=== PATIENT | male | born 1955 | race Caucasian/White ===

== ENCOUNTER → 2023-10-05 13:58 | Outpatient (REF) | payer MEDICARE, OTHER, SELFPAY | LOC: RAD 13:58 | PROVIDERS: ATTENDING PHYSICIAN Physician Assistant Medical | DX: M25.511 Pain in right shoulder (principal) | CPT/HCPCS: 73030 ==

== ENCOUNTER 2024-02-19 02:32 | Emergency (ER) | payer MEDICARE, OTHER, SELFPAY ==
[2024-02-19 02:33] VITALS: BMI 30.4
[2024-02-19 02:47] VITALS: BP 139/97
[2024-02-19 03:00] VITALS: BP 147/97
--- NOTE | 2024-02-19 03:12 | EDRN ---
Original EKG was done in triage; however, unable to print first EKG as machine was not working. 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 Repeat EKG completed upon pt.'s arrival to [facility] by ECT.
--- NOTE | 2024-02-19 03:23 | EDRN ---
Pt. refused chest x-ray, states, 'I don't want that, I was really mostly concerned about getting an EKG, but I don't want the chest x-ray'.
[2024-02-19 03:30] LABS: % Basophils 0.8 % (0-2); % Eosinophils 2.7 % (0-6); % Immature Granulocytes 0.6 % (0-0.5); % Lymphocytes 21.5 % (20.5-51.1); % Neutrophils 66.4 % (42.2-75.2); Absolute Basophils 0.1 10^3/uL (0-0.2); Absolute Eosinophils 0.3 10^3/uL (0-0.7); Absolute Immature Granulocytes 0.1 10^3/uL (0-0.05); Absolute Lymphocytes 2.2 10^3/uL (1.2-3.4); Absolute Monocytes 0.8 10^3/uL (0.1-0.6); Absolute Neutrophils 6.9 10^3/uL (1.4-6.5); Hematocrit 44.7 % (39.0-52.0); Hemoglobin 15.3 g/dL (13.0-18.0); Mean Corp Hgb Conc. 34.2 g/dL (33.0-37.0); Mean Corpuscular Hgb 29.3 pg (27.0-31.0); Mean Corpuscular Volume 85.6 fL (80.0-94.0); Mean Platelet Volume 10.5 fL (7.4-10.4); Nucleated Red Blood Cells % 0 % (-); Platelet Count 221 10^3/uL (130-400); Red Blood Cell Count 5.22 10^6/uL (4.70-6.10); Red Cell Dist. Width 12.8 % (11.5-14.5); White Blood Cell Count 10.3 10^3/uL (4.8-10.8)
--- NOTE | 2024-02-19 03:31 | ED.GENMED ---
History of Present Illness
<Yonas Lamb, DO - Last Filed: 02/19/24 03:44>
General
Chief Complaint: Heart Rate Problem
Time Seen by Provider: 02/19/24 03:13
<Melina Gonzales MD, Resident - Last Filed: 02/19/24 03:46>
General
Source: patient
Exam Limitations: none
Nursing documentation reviewed up to this point in time: agreed with
Travel History
Have you traveled to any high risk areas for coronavirus over the past 14 days?: No
Have you had any contact with someone who has COVID-19?: No
Do you have any symptoms of coronavirus? Fever > 100 degrees, chills, cough, shortness of breath, sore throat, loss of taste or smell, muscle aches, or headache?: No
History of Present Illness
History of Present Illness:
68-year-old male with past medical history significant for ventricular arrhythmia, hypertension, hyperlipidemia presents to the hospital for evaluation of heart rate greater than 160 for 3 consecutive hours. Patient had similar issue many years
ago, saw gum puller at [facility], was started on diltiazem after being on loop recorder for 14 days and was diagnosed with ventricular arrhythmia. Recently an year and half ago his diltiazem dose was bumped to 180 mg, he was started on
irbesartan for high blood pressure, and Repatha for hyperlipidemia. Today afternoon he started feeling lightheaded and dizzy, towards the night his lightheadedness became much worse with associated sensation of heart racing. Then he used [employer] and [employer] device to generate an EKG which showed a heart rate of 160 with a comment of possible A-fib. Hence he presented to ER for evaluation. Patient denies having any associated chest pain, pressure-like sensation, syncope or near
syncopal episode, orthopnea, PND, swelling of his feet, nausea, vomiting, chills, diarrhea, change in bowel and bladder habit.
He denies being on blood thinners, his gum puller gave him as needed warfarin dosing for prolonged flight travels which she never took.
If applicable-neuro sx onset
Onset of symptoms known: No
Time pt last seen normal is known: No
Past History
<Melina Gonzales MD, Resident - Last Filed: 02/19/24 03:46>
Past History
ED Past Medical History: Other (Hypertension, hyperlipidemia, ventricular arrhythmia, inguinal herni.)
ED Past Surgical History: Other (Hernia, finger, testicle.)
Patient has exhibited threatening behavior?: No
PSI?: No
Social History
Tobacco: Non-smoker
Alcohol: Occasional
Drug: None
Personal:
Living: with family
Employment: Employed
Family History
Family History: Other
Review of Systems
<Melina Gonzales MD, Resident - Last Filed: 02/19/24 03:46>
Review of Systems
Constitutional: Reports no symptoms
EENT: Reports no symptoms
Respiratory: Reports no symptoms
Cardiac: Reports palpitations and other (Lightheadedness and dizziness)
ABD/GI: Reports no symptoms
: Reports no symptoms
Musculoskeletal: Reports no symptoms
Skin: Reports no symptoms
Neurological: Reports dizzy and headache
Endocrine: Reports no symptoms
Hematologic/Lymphatic: Reports no symptoms
Psychiatric: Reports no symptoms
Phy Exam
<Melina Gonzales MD, Resident - Last Filed: 02/19/24 03:46>
General Physical Exam
General Presentation: well appearing and no apparent distress
General age: appears stated age
General Skin: warm
General Habitus: normal
General Mental: alert
ENT Exam
ENT Exam: EOMI, TM's normal and pharynx normal
Cardiovascular Exam
Cardiovascular Exam: regular rate/rhythm, no edema, no gallop, no JVD, no murmur and normal peripheral pulses
Heart Sounds: normal
Pulmonary Exam
Pulmonary Exam: lungs clear, no respiratory distress, no rales, no crackles and no rhonchi
Gastrointestinal Exam
Gastrointestinal Exam: normal bowel sounds, non tender, soft, no pulsatile mass and non distended
Neurological Exam
Neurological Exam: alert, no motor deficits and normal reflexs
Musculoskeletal Exam
Musculoskeletal Exam: no edema
Course
<Yonas Lamb, DO - Last Filed: 02/19/24 03:44>
Orders/Labs/Results
Orders:
Orders
02/19/24 02:33
Electrocardiogram (*1) Urgent
Reason for Study: Other
Other Reason for Exam: Respiratory Distress
Cardiac Monitoring- Treatment ONCE
EKG- Treatment ONCE
IV Insert/Care/Rem.- Treatment PRN
O2 Therapy [RESP] Urgent
Titrate/Wean O2 to maintain O2 sat greater than (%): 93
Special Instructions: TO MAINTAIN CONTINUOUS O2 SATS >/= 93%
Pulse Ox/cont/shift [RESP] Urgent
Quantity: 1
Special Instructions: continuous pulse ox
02/19/24 03:08
Complete Blood Count/With Diff Urgent
Comprehensive Metabolic Panel Urgent
NT-proBNP Urgent
Troponin I Urgent
Abnormal Lab Results
02/19/24
03:08
MPV 10.5 H fL
(7.4-10.4)
Abs Immat Gran (auto) 0.1 H 10^3/uL
(0-0.05)
Absolute Neuts (auto) 6.9 H 10^3/uL
(1.4-6.5)
Absolute Monos (auto) 0.8 H 10^3/uL
(0.1-0.6)
Immature Gran % 0.6 H %
(0-0.5)
Glucose 138 H mg/dl
(70-99)
02/19/24 03:08
02/19/24 03:08
Vital Signs
Initial and Last Documented VS:
Initial Vital Signs
Temp Pulse Resp BP Pulse Ox
98.5 F 106 20 139/97 96
02/19/24 02:47 02/19/24 02:47 02/19/24 02:47 02/19/24 02:47 02/19/24 02:47
Last Documented Vital Signs
Temp Pulse Resp BP Pulse Ox
98.5 F 95 27 147/97 95
02/19/24 02:47 02/19/24 03:20 02/19/24 03:20 02/19/24 03:00 02/19/24 03:20
<Melina Gonzales MD, Resident - Last Filed: 02/19/24 03:46>
Orders/Labs/Results
Orders:
Orders
02/19/24 02:33
Electrocardiogram (*1) Urgent
Reason for Study: Other
Other Reason for Exam: Respiratory Distress
Cardiac Monitoring- Treatment ONCE
EKG- Treatment ONCE
IV Insert/Care/Rem.- Treatment PRN
O2 Therapy [RESP] Urgent
Titrate/Wean O2 to maintain O2 sat greater than (%): 93
Special Instructions: TO MAINTAIN CONTINUOUS O2 SATS >/= 93%
Pulse Ox/cont/shift [RESP] Urgent
Quantity: 1
Special Instructions: continuous pulse ox
02/19/24 03:08
Complete Blood Count/With Diff Urgent
Comprehensive Metabolic Panel Urgent
NT-proBNP Urgent
Troponin I Urgent
Abnormal Lab Results
02/19/24
03:08
MPV 10.5 H fL
(7.4-10.4)
Abs Immat Gran (auto) 0.1 H 10^3/uL
(0-0.05)
Absolute Neuts (auto) 6.9 H 10^3/uL
(1.4-6.5)
Absolute Monos (auto) 0.8 H 10^3/uL
(0.1-0.6)
Immature Gran % 0.6 H %
(0-0.5)
Glucose 138 H mg/dl
(70-99)
02/19/24 03:08
02/19/24 03:08
Vital Signs
Initial and Last Documented VS:
Initial Vital Signs
Temp Pulse Resp BP Pulse Ox
98.5 F 106 20 139/97 96
02/19/24 02:47 02/19/24 02:47 02/19/24 02:47 02/19/24 02:47 02/19/24 02:47
Last Documented Vital Signs
Temp Pulse Resp BP Pulse Ox
98.5 F 95 27 147/97 95
02/19/24 02:47 02/19/24 03:20 02/19/24 03:20 02/19/24 03:00 02/19/24 03:20
<Melina Gonzales MD, Resident - Last Filed: 02/19/24 03:46>
MDM/Problems Addressed
Differential Diagnosis Includes:
Tachy arrhythmia, dysrhythmia, PE.
MDM/Problems Addressed:
Patient wants to leave as his symptoms subsided and he has to wake up early in the morning
Chronic conditions affecting care: HTN and Arrhythmia
Acute Exacerbation and/or Progression of Chronic Illness: Arrhythmia
<Melina Gonzales MD, Resident - Last Filed: 02/19/24 03:46>
*Critical Care Note
Total Time (30-74mins, 75-104mins- exclusive of procedures): Not Applicable
<Melina Gonzales MD, Resident - Last Filed: 02/19/24 03:46>
Update Note
Update Note:
Patient wants to leave as he already feels better.
ED Attending Note
<Yonas Lamb DO - Last Filed: 02/19/24 03:44>
ED Attending Note
Patient seen and examined by attending physician: Yes
I performed a history and physical exam of patient and discussed management with resident, I reviewed resident's note and agree with documented findings and plan of care.: Yes
ED Attending Note:
Seen with resident examined independently 68-year-old male long history of tachycardia followed at [facility]' vital signs like an EP physician's on [place] had a fast heart rate earlier today, resolved we came to the ER, when I saw him he was told
me he would like to go home, as he has been through this before sounds like alcohol may be a trigger for him counseled to limit his alcohol use, I will follow his electrolytes which have already been sent to the level not keep him against his will
encouraged to follow-up with his gum puller
<Melina Gonzales MD, Resident - Last Filed: 02/19/24 03:46>
-
Portions of this chart may have been created with voice recognition software.� Occasional wrong word or��sound alike� substitutions may have occurred due to the inherent limitations of voice recognition software.
Discharge Plan
Departure
Date of Disposition: 02/19/24
Time of Disposition: 03:44
Patient with high blood pressure during this ER visit?: Yes
Condition: Fair
Instructions: Palpitations (DC), BLOOD PRESSURE
Referrals:
PRIVATE,PHYSICIAN [Family Provider] -
Activity Restrictions/Additional Instructions:
Follow-up with your primary care and gum puller within 1 week
Interventions
Interventions:
*Risk Screen - Suicide Last Done: 02/19/24 02:47
*General Assessment Last Done: 02/19/24 02:47
*Neglect/Abuse Screening Last Done: 02/19/24 02:47
ED- Fall Risk Assessment Last Done: 02/19/24 03:27
*ED COVID-19 Vaccine History Last Done: 02/19/24 03:26
ED- Cardiac Assessment Last Done: 02/19/24 03:00
ED- Pulmonary Assessment Last Done: 02/19/24 03:00
Discharge Date and Time
Print Language: SERBIAN
[2024-02-19 03:38] LABS: ALT (SGPT) 28 U/L (0-50); AST (SGOT) 24 U/L (17-59); Albumin 4.3 g/dl (3.5-5.0); Alkaline Phosphatase 91 U/L (38-126); Blood Urea Nitrogen 18 mg/dl (9-20); Calcium 9.6 mg/dl (8.4-10.2); Carbon Dioxide 23 mmol/L (22-30); Chloride 107 mmol/L (98-107); Estimated Creatinine Clearance 76 ml/min; Glucose 138 mg/dl (70-99); Potassium 4.2 mmol/L (3.5-5.1); Sodium 142 mmol/L (135-145); Total Bilirubin 0.2 mg/dl (0.2-1.3); Total Protein 6.5 g/dl (6.3-8.2); eGFR > 60.00
[2024-02-19 03:47] LABS: NT-proBNP 54.9 pg/ml; Troponin I 0.012 ng/ml
== END 2024-02-19 03:54 | disposition home or self-care (01) ==
LOC: EMR 02:32
PROVIDERS: Emergency Medicine; EMERGENCY PHYSICIAN Emergency Medicine
DX: R00.0 Tachycardia, unspecified (principal); I10 Essential (primary) hypertension; E78.00 Pure hypercholesterolemia, unspecified
CPT/HCPCS: 99283; 80053; 83880; 84484; 85025; 93005